=== PATIENT | male | born 1975 | race Caucasian/White ===

== ENCOUNTER 2021-05-13 19:12 | Emergency (ER) | payer BC ==
[2021-05-13] MEDS ORDERED: Ketorolac 30 MG/ML SDV IM ONE (20:10)
[2021-05-13] MEDS ORDERED: Ketorolac 30 MG/ML SDV IVPUSH ONE (20:18)
[2021-05-13] MEDS ORDERED: Lactated Ringers 1,000 ML IV SCH (20:30)
[2021-05-13] MEDS ORDERED: Tamsulosin 0.4 MG Cap.ER PO ONE (21:00)
== END 2021-05-13 21:50 | disposition home or self-care (01) ==
LOC: JP.ED 19:12
DX: N13.2 Hydronephrosis with renal and ureteral calculous obstruction (principal); N17.9 Acute kidney failure, unspecified; Z90.49 Acquired absence of other specified parts of digestive tract
CPT/HCPCS: 36415; 74176; 80048; 81001; 85025; 96374; 99284; A9270; J1885; J7120